=== PATIENT | male | born 1995 | race Hispanic/Latino ===

== ENCOUNTER 2022-03-02 19:07 | Emergency (ER) | payer OTHER, SELFPAY ==
--- NOTE | ~2022-03-02 | CT_ITS ---
EXAMINATION: CT lumbar spine wo con DATE: 03/02/2022 19:42 INDICATION: Low back pain and left buttock pain post fall down stairs TECHNIQUE: Computed tomography (CT) of the lumbar spine was performed without intravenous contrast. A utomated exposure control and iterative reconstruction technique were employed. The dose-length produ ct was 636.16 mGy-cm. COMPARISON: Lumbar spine radiographs dated 02/11/2008 FINDINGS: 11 degree lumbar dextroscoliosis. Sagittal alignment is normal. Vertebral body heights are normal. No fracture. Mild disc height loss at L4-L5 and L5-S1. Although assessment of the soft tissue s is more limited than with MRI there appear to be small disc bulges at both levels resulting in mild central canal stenosis at L4-L5 and mild neural foraminal stenosis bilaterally at both levels. Minim al to mild bilateral facet osteoarthritis throughout the lumbar spine. Small bone islands with spicul ated margins at the right sacral ala. Paravertebral soft tissues are unremarkable. IMPRESSION: 1. Mild lumbar dextro scoliosis with mild lower lumbar spondylosis. No acute osseous abnormality. Reviewed, dictated and finalized at location A. IMPRESSION: 1. Mild lumbar dextro scoliosis with mild lower lumbar spondylosis. No acute os seous abnormality.
[2022-03-02 19:10] VITALS: BP 100/69; PULSE 70; RESP 18; TEMP 36.4; O2SAT 100
[2022-03-02] MEDS: SODIUM CHLORIDE 0.9% IV 1,000 ML 999 ML IV CONT (19:48)
[2022-03-02] MEDS: diazePAM INJ (*CRX) 10 MG/2 ML SYRINGE 5 MG IV PUSH (19:49)
[2022-03-02] MEDS: KETOROLAC 30 MG/ML VIAL (*BKC) IV PUSH (19:49)
--- NOTE | 2022-03-02 20:46 | ED.BACK ---
HPI - Back Pain/Injury General Chief Complaint: Back Pain/Injury Stated Complaint: fell down stairs - low left backache Time Seen by Provider: 03/02/22 19:10 History of Present Illness HPI Narrative: Patient is a 18-year-old male who presents ER status post falling down stairs 1 day ago. He was walking downstairs always raining and found to his back and went down 9 stairs onto a concrete slab. Did not strike his head or lose consciousness. He was able to get up and ambulate without issue afterwards. This morning woke up and has had significant pain along his left side going down into his buttock with any type of movement. Has difficulty standing and walking. No numbness or tingling in his groin. No inability to urinate/defecate. No lower extremity weakness. Related Data Allergies Allergy/AdvReac Type Severity Reaction Status Date / Time No Known Allergies Allergy Mild Verified 05/11/15 17:55 Review of Systems Review of Systems: All systems reviewed & are unremarkable except as noted in HPI and below Gastrointestinal: Gastrointestinal: Denies abdominal pain, Denies nausea and Denies vomiting Genitourinary: Genitourinary: Denies dysuria and Denies urinary incontinence Musculoskeletal: Musculoskeletal: Reports back pain, Denies arthralgias and Denies joint swelling Integumentary/Breasts: Skin/Breast: Denies erythema and Denies rash Neurologic: Denies syncope, Denies headache(s), Denies numbness and Denies weakness PMFSH Past Medical History Medical History (Updated 03/02/22 @ 20:52 by Juan Ramon Franklin MD) Healthy adult male Surgical History Surgical History (Updated 03/02/22 @ 20:49 by Juan Ramon Franklin MD) No history of previous surgery Exam Narrative: GENERAL: Well-appearing, well-nourished, and in no acute distress. HEAD: Normocephalic, atraumatic. Back: Midline tenderness of the lumbar spine and left paraspinal musculature without visualized bruising/abrasion. EXTREMITIES: Normal range of motion. No edema. SKIN: Warm, dry, no rash. NEURO: Alert and oriented x3. PSYCH: Normal mood and affect. Course Course Emergency Course: Imaging without fracture. Pain improved with Toradol and Valium and fluids. Discharge home with supportive care. Will provide with work note. Vital Signs Vital signs: Vital Signs Temperature 97.5 F L 03/02/22 19:10 Pulse Rate 70 03/02/22 19:10 Respiratory Rate 18 03/02/22 19:10 Blood Pressure 100/69 03/02/22 19:10 Pulse Oximetry 100 03/02/22 19:10 Oxygen Delivery Room Air 03/02/22 19:10 Temperature 97.5 F L 03/02/22 19:10 Pulse Rate 70 03/02/22 19:10 Respiratory Rate 18 03/02/22 19:10 Blood Pressure 100/69 03/02/22 19:10 Pulse Oximetry 100 03/02/22 19:10 Oxygen Delivery Room Air 03/02/22 19:10 MDM - Back Pain/Injury Imaging Data Radiologist's impression: ITS Impressions Lumbar Spine CT 03/02/22 19:44 IMPRESSION: 1. Mild lumbar dextro scoliosis with mild lower lumbar spondylosis. No acute osseous abnormality. Discharge Plan Discharge Clinical Impression: Strain of lumbar region Patient Disposition: Home, Self-Care Condition: Stable Instructions: Acute Low Back Pain (ED), Lower Back Exercises (ED) Additional Instructions: Return to the ER if you have increased pain in your back, you develop lower extremity weakness/numbness/paralysis, you have numbness or tingling in your private parts, or you are unable to control your ability to urinate/stool. Prescriptions: New cyclobenzaprine 10 mg tablet 10 mg PO TID PRN (Reason: muscle spasm) Qty: 20 0RF naproxen 375 mg tablet 375 mg PO BID Qty: 14 0RF Follow-up/Referrals: PHYSICIAN,[employer] TECHNICIAN [Primary Care Provider] - Balaji García MD [Physician] - 1 Week
[2022-03-02 21:09] VITALS: BP 120/72; PULSE 80; RESP 18; O2SAT 99
== END 2022-03-02 21:10 | disposition home or self-care (01) ==
PROVIDERS: Emergency Provider Emergency Medicine
DX: S39.012A Strain of muscle, fascia and tendon of lower back, initial encounter (principal); W10.9XXA Fall (on) (from) unspecified stairs and steps, initial encounter
CPT/HCPCS: 72131; 96361; 96374; 96375; 99284; J1885; J3360; J7030

== ENCOUNTER 2022-03-14 17:07 | Emergency (ER) | payer OTHER, SELFPAY ==
--- NOTE | 2022-03-14 17:13 | ED.GENADULT ---
HPI - General Adult General Chief complaint: Headache Stated complaint: Covid+ headache Time Seen by Provider: 03/14/22 17:22 Source: patient, RN notes reviewed and old records reviewed Mode of arrival: ambulatory Limitations: no limitations History of Present Illness HPI narrative: 26-year-old male presents to the [facility] with concerns that he was COVID-positive at home. Has a headache. Symptoms started yesterday. Requesting a work note for his job. Related Data Home Medications Medication Instructions Recorded Confirmed No Home Medications 03/14/22 03/14/22 Allergies Allergy/AdvReac Type Severity Reaction Status Date / Time No Known Allergies Allergy Mild Verified 03/14/22 17:11 Review of Systems Review of Systems: All systems reviewed & are unremarkable except as noted in HPI and below Constitutional: Constitutional: Reports no additional constitutional complaints, Denies chills and Denies fever(s) Eyes: Eyes: Reports no additional eye complaints ENT: Reports as per HPI and Reports nasal congestion Cardiovascular: Cardiovascular: Reports no additional cardiovascular complaints Respiratory: Respiratory: Reports no additional respiratory complaints Gastrointestinal: Gastrointestinal: Reports no additional gastrointestinal complaints Musculoskeletal: Musculoskeletal: Reports no additional musculoskeletal complaints Integumentary/Breasts: Skin/Breast: Reports system reviewed and no additional complaints, except as docu Neurologic: Reports as per HPI and Reports headache(s) Psychiatric: Psychiatric: Reports no additional psychiatric complaints Allergic/Immunologic: Allergic/Immunologic: Reports no additional allergic/immunologic complaints PMF Past Medical History Medical History Healthy adult male Surgical History Surgical History No history of previous surgery Comments At the time of my signature, I reviewed and agree with the nursing past medical, surgical, social, and family history. There is no relevant family history pertinent to the patient complaint. Exam Const: General: healthy appearing, no acute distress and alert Nutritional Appearance: well nourished Orientation/consciousness: patient oriented x3 Limitations: no limitations HENMT: Head: normal to inspection Ears: external ears normal Eyes: General: appearance normal, both eyes and all related structures Pupils: Equal, round and reactive pupils present Neck: Neck: normal visual inspection, no lymphadenopathy and no meningeal signs Chest: Chest palpation & inspection: normal inspection of the chest Resp: Effort & Inspection: normal respiratory effort and no use of accessory muscles Auscultation: clear to auscultation bilaterally, no crackles, no rales, no rhonchi and no wheezes Cardio: Rate: regular rate Rhythm: regular rhythm GI: GI Palp: Yes Soft to palpation and No Tenderness to palpation present (GI) Back/Spine/Pelvis: Cervical Spine: normal cervical lordosis Thoracic/Lumbar Spine: thoracic and lumbar spine normal to inspection Skin: General skin exam: normal color Rashes: no rashes Wounds: no wounds Neuro: General: patient oriented x3, moves all extremities, no meningeal signs and no focal motor deficits Cranial nerves: Yes Equal, round and reactive pupils present Speech: normal speech Gait exam (Neuro): Normal gait present Extrem: General: normal to inspection, full ROM and capillary refill normal Psych: Appearance: grossly normal and well kempt Mental Status: mental status grossly normal Affect: normal affect Attitude: cooperative Thought content: Yes Normal thought content present Course Course Emergency Course: Discharge instructions reviewed with patient, as well as provided in writing per nursing staff. The instructions also include specific and strict return/GO TO THE ER as well
[2022-03-14 17:20] VITALS: BP 119/58; PULSE 78; RESP 18; TEMP 38.4; O2SAT 99
[2022-03-14] MEDS: ACETAMINOPHEN 500 MG TABLET 1000 MG PO (17:30)
== END 2022-03-14 17:39 | disposition home or self-care (01) ==
PROVIDERS: Emergency Provider Nurse Practitioner
DX: U07.1 COVID-19 (principal)
CPT/HCPCS: 87426; 99213; A9270; C9803; G0463